=== PATIENT | male | born 1970 | race Caucasian/White ===

== ENCOUNTER 2016-11-29 18:16 | Emergency (ER) | payer BC, OTHER ==
[~2016-11-29] VITALS: Wt 83.0 kg
[~2016-11-29 18:16] MED LIST: ACET500T98 PO; ATOR20TA17 PO; IBUP-725 PO; METO25TA54 PO
[2016-11-29] MEDS ORDERED: SOD CHLORIDE 0.9% 1,000 ML IV STA (18:47)
--- NOTE | 2016-11-29 18:48 | ERD ---
ER Documentation Chief Complaint Date/Time DATE: 11/29/16 TIME: 18:41 Chief Complaint BACK PAIN, FEVER AT HOME, BODYACHES, BURNING WITH URINATION HPI 46-year-old male presents here in emergency department for complaints of bilateral flank pain and dysuria, urinary urgency, and frequency for 3 days, fever. Patient has been having bilateral flank pain, sharp pain, 6/10 scale, accompanied with fever and dysuria. Patient is complaining of pain upon urination, burning pain,6/10 scale, not better or worse with anything. ROS All systems reviewed and are negative except as per history of present illness. Medications Home Meds Reported Medications Ibuprofen (Motrin) 400 Mg Tablet, 400 MG PO PRN 12/03/10 Acetaminophen (Tylenol) 500 Mg Tab, 500 MG PO PRN 12/03/10 Metoprolol Succinate (Toprol Xl) 25 Mg Tab.sr.24h, 75 MG PO AM 12/03/10 Atorvastatin (Lipitor) 20 Mg Tablet, 20 MG PO HS 12/03/10 Allergies Allergies: Coded Allergies: No Known Drug Allergies (Verified Allergy, Mild, 12/03/10) PMhx/Soc History of Surgery: No Anesthesia Reaction: No Hx Neurological Disorder: No Hx Respiratory Disorders: No Hx Cardiac Disorders: No Hx Psychiatric Problems: No Hx Miscellaneous Medical Probl: Yes (HIGH CHOLESTEROL,HTN) Hx Alcohol Use: No Hx Substance Use: No Hx Tobacco Use: Yes FmHx Family History: No coronary disease, No diabetes, No other Physical Exam Vitals Vital Signs Date Time Temp Pulse Resp B/P Pulse Ox O2 Delivery O2 Flow Rate FiO2 11/29/16 18:19 99.0 103 17 127/82 98 Physical Exam GENERAL: The patient is well developed and appropriate for usual state of health, in no apparent distress. CHEST: Clear to auscultation bilaterally. There are no rales, wheezes or rhonchi. HEART: Regular rate and rhythm. No murmurs, clicks, rubs or gallops. No S3 or S4. ABDOMEN: Soft, nontender and nondistended. Good bowel sounds. No rebound or guarding. No gross peritonitis. No gross organomegaly or masses. No Stanley sign or McBurney point tenderness. BACK: No midline or flank tenderness. EXTREMITIES: Equal pulses bilaterally. There is no peripheral clubbing, cyanosis or edema. No focal swelling or erythema. Full range of motion. Grossly neurovascularly intact. NEURO: Alert and oriented. Cranial nerves 2-12 intact. Motor strength in all 4 extremities with 5/5 strength. Sensation grossly intact. Normal speech and gait. SKIN: There is no apparent rash or petechia. The skin is warm and dry. HEMATOLOGIC AND LYMPHATIC: There is no evidence of excessive bruising or lymphedema. No gross cervical, axillary, or inguinal lymphadenopathy. Result Diagram: 11/29/16189911/29/161899 Results 24 hrs Laboratory Tests Test 11/29/16 19:00 White Blood Count 9.010^3/ul Red Blood Count 4.4510^6/ul Hemoglobin 14.4g/dl Hematocrit 41.5% Mean Corpuscular Volume 93.3fl Mean Corpuscular Hemoglobin 32.4pg Mean Corpuscular Hemoglobin Concent 34.7g/dl Red Cell Distribution Width 13.2% Platelet Count 7810^3/UL Mean Platelet Volume 10.9fl Neutrophils % 86.2% Lymphocytes % 9.6% Monocytes % 3.7% Eosinophils % 0.0% Basophils % 0.2% Nucleated Red Blood Cells % 0.0/100WBC Neutrophils # 7.810^3/ul Lymphocytes # 0.910^3/ul Monocytes # 0.310^3/ul Eosinophils # 0.010^3/ul Basophils # 0.010^3/ul Nucleated Red Blood Cells # 0.010^3/ul Urine Color DAVE Urine Clarity CLEAR Urine pH 6.0 Urine Specific Weston 1.004 Urine Ketones TRACEmg/dL Urine Nitrite POSITIVEmg/dL Urine Bilirubin NEGATIVEmg/dL Urine Urobilinogen 1+mg/dL Urine Leukocyte Esterase 2+Agata/ul Urine Microscopic RBC 6/HPF Urine Microscopic WBC 41/HPF Urine Hemoglobin 2+mg/dL Urine Glucose 1+mg/dL Urine Total Protein NEGATIVEmg/dl Sodium Level 139mmol/L Potassium Level 3.8mmol/L Chloride Level 99mmol/L Carbon Dioxide Level 27mmol/L Anion Gap 17 Blood Urea Nitrogen 6mg/dl Creatinine 0.87mg/dl Glucose Level 207mg/dl Calcium Level 9.0mg/dl Total Bilirubin 0.6mg/dl Direct Bilirubin 0.00mg/dl Indirect Bilirubin 0.6mg/dl Aspartate Amino Transf (AST/SGOT) 20IU/L Alanine Aminotransferase (ALT/SGPT) 43IU/L Alkaline Phosphatase 47IU/L Total Protein 6.8g/dl Albumin 4.0g/dl Globulin 2.80g/dl Albumin/Globulin Ratio 1.42 Lipase 23U/L Current Medications Medications (Trade) Dose Ordered Sig/Noe Route PRN Reason Start Time Stop Time Status Last Admin Dose Admin Sodium Chloride 1,000 ml @ 1,000 mls/hr Q1H STAT IV 11/29/16 18:47 11/29/16 19:46 DC 11/29/16 19:00 Ceftriaxone Sodium (Rocephin) 50 ml @ 100 mls/hr ONCE ONCE IVPB 11/29/16 20:30 11/29/16 20:59 UNV IV Rocephin was given here in emergency department for pyelonephritis. PROCEDURE: CT abdomen and pelvis without contrast. CLINICAL INDICATION: Abdominal Pain TECHNIQUE: CT scan of the abdomen and pelvis without contrast was performed on a multi-slice CT scanner. The patient was scanned without intravenous contrast. 3-D sagittal and coronal reformatted images were obtained from the axial source images. CTDI: 11.5 and DLP: 666.08 One or more of the following post reduction techniques were used: Automated exposure control. Adjustment of the mA and/or kV according to patient's size. Use of iterative reconstruction technique. COMPARISON: None. FINDINGS: Images through the lung bases demonstrate mild discoid atelectasis in the right middle lobe and left lower lobe. There is no evidence of focal basilar consolidation or pleural effusion. The liver, gallbladder, pancreas and adrenal glands are unremarkable on this noncontrast study. The spleen is enlarged measuring 17 cm in craniocaudal dimension. The kidneys are bilaterally symmetrical without evidence of hydronephrosis. There is no evidence of obstructive uropathy. There is small shoddy left periaortic lymph nodes that are less than 1 cm in short axis diameter. Atherosclerotic changes are seen in the abdominal aorta without evidence of aneurysm. The stomach is grossly unremarkable. There is no evidence of small bowel obstruction or appendicitis. Stool is seen throughout the colon. There is no evidence of diverticulitis. The bladder is moderately distended. No free fluid or free intraperitoneal air is identified. Evaluation of the osseous structures reveals no acute change. IMPRESSION: 1. The spleen is markedly enlarged measuring 17 cm in craniocaudal dimension. 2. Stool is seen throughout the colon. 3. The bladder is moderately distended. 4. Mild discoid atelectasis in the right middle lobe and left lower lobe. RPTAT:AAJJ Huber Aguilar Physician Date Time Electronically viewed and signed by Huber Aguilar Physician on 11/29/2016 20: 05 MC/ CC: JESSICA SARGENT [employer]ING [employer]ER Procedures/MDM Medical Decision Making: Patient's symptoms is likely consistent with pyelonephritis. Patient does not have any obstructive stone. No symptoms of any septic stone. Patient also has constipation may be causing some urinary retention There is low suspicion for abdominal emergencies at this time. Patients abdominal exam is normal at this time. Patients radiology exam does not show any abdominal emergencies at this time. There is low suspicion for appendicitis, cholecystitis, abdominal aortic aneurysms or peritonitis at this time. There is low suspicion for sepsis. Patient appears well and is hemodynamically stable. Disposition: Home. Condition: Stable Prescription for ciprofloxin, Pyridium, Colace, MiraLAX Instructions: Patient is advised to take medications as prescribed. Patient is advised to rest, increase fluid intake and do brat diet for next 1-2 days and progress as tolerated. Patient is advised that if symptoms are worse, severe abdominal pain, uncontrolled vomiting, high fever, severe flank pain, worst signs and symptoms, to return to the emergency department immediately. Otherwise, patient can follow up with primary care doctor in 5-7 days. Departure Diagnosis: Primary Impression: Pyelonephritis Additional Impression: Constipation Constipation type: unspecified constipation type Qualified Code: K59.00 - Constipation, unspecified constipation type Condition: Stable Patient Instructions: Constipation (Adult), Pyelonephritis, Male (Adult) Additional Instructions: Patient is advised to take medications as prescribed. Patient is advised to rest, increase fluid intake and do brat diet for next 1-2 days and progress as tolerated. Patient is advised that if symptoms are worse, severe abdominal pain , uncontrolled vomiting, high fever, severe flank pain, worst signs and symptoms , to return to the emergency department immediately. Otherwise, patient can follow up with primary care doctor in 5-7 days. JESSICA SARGENT NP Nov 29, 2016 18:48
[2016-11-29 19:07] LABS: ABNORMAL IP MESSAGE 1; BASOPHILS % 0.2 % (0.0-2.0); HEMATOCRIT 41.5 % (42.0-52.0); HEMOGLOBIN 14.4 g/dl (14.0-18.0); LYMPHOCYTES # 0.9 10^3/ul (0.8-2.9); LYMPHOCYTES % 9.6 % (15.0-51.0); MEAN CORPUSCULAR HEMOGLOBIN 32.4 pg (29.0-33.0); MEAN CORPUSCULAR HGB CONC 34.7 g/dl (32.0-37.0); MEAN CORPUSCULAR VOLUME 93.3 fl (82.0-101.0); MEAN PLATELET VOLUME 10.9 fl (7.4-10.4); MONOCYTE # 0.3 10^3/ul (0.3-0.9); MONOCYTES % 3.7 % (0.0-11.0); NEUTROPHIL # 7.8 10^3/ul (1.6-7.5); NEUTROPHILS % 86.2 % (39.0-77.0); PLATELET COUNT 78 10^3/UL (140-415); POSITIVE DIFF @See below; RED BLOOD COUNT 4.45 10^6/ul (4.70-6.10); RED CELL DISTRIBUTION WIDTH 13.2 % (11.5-14.5)
[2016-11-29 19:24] LABS: ADD UMIC YES; UR ASCORBIC ACID NEGATIVE (NEGATIVE); UR BILIRUBIN (Dip) NEGATIVE (NEGATIVE); UR BLOOD (Dip) 2+ mg/dL (NEGATIVE); UR CLARITY CLEAR (CLEAR); UR COLOR AMBER (YELLOW); UR GLUCOSE (Dip) 1+ mg/dL (NEGATIVE); UR KETONES (Dip) TRACE mg/dL (NEGATIVE); UR LEUKOCYTE ESTERASE (Dip) 2+ Leu/ul (NEGATIVE); UR NITRITE (Dip) POSITIVE (NEGATIVE); UR RBC 6 /HPF (0-5); UR SPECIFIC GRAVITY (Dip) 1.004 (1.003-1.030); UR TOTAL PROTEIN (Dip) NEGATIVE (NEGATIVE); UR UROBILINOGEN (Dip) 1+ mg/dL (NEGATIVE)
[2016-11-29 19:26] LABS: ALBUMIN/GLOBULIN RATIO 1.42; BILIRUBIN,INDIRECT 0.6 mg/dl (0-1.1); BILIRUBIN,TOTAL 0.6 mg/dl (0.2-1.3); CREATININE 0.87 mg/dl (0.61-1.24); POTASSIUM 3.8 mmol/L (3.5-5.1); TOTAL PROTEIN 6.8 g/dl (6.1-8.1)
--- NOTE | 2016-11-29 20:06 | RADRPT ---
PROCEDURE: CT abdomen and pelvis without contrast. CLINICAL INDICATION: Abdominal Pain TECHNIQUE: CT scan of the abdomen and pelvis without contrast was performed on a multi-slice CT [facility]. The patient was scanned without intravenous contrast. 3-D sagittal and coronal reformatted images were obtained from the axial source images. CTDI: 11.5 and DLP: 666.08 One or more of the following post reduction techniques were used: Automated exposure control. Adjustment of the mA and/or kV according to patient's size. Use of iterative reconstruction technique. COMPARISON: None. FINDINGS: Images through the lung bases demonstrate mild discoid atelectasis in the right middle lobe and left lower lobe. There is no evidence of focal basilar consolidation or pleural effusion. The liver, gallbladder, pancreas and adrenal glands are unremarkable on this noncontrast study. The spleen is enlarged measuring 17 cm in craniocaudal dimension. The kidneys are bilaterally symmetrical without evidence of hydronephrosis. There is no evidence of obstructive uropathy. There is small shoddy left periaortic lymph nodes that are less than 1 cm in short axis diameter. At herosclerotic changes are seen in the abdominal aorta without evidence of aneurysm. The stomach is grossly unremarkable. There is no evidence of small bowel obstruction or appendiciti s. Stool is seen throughout the colon. There is no evidence of diverticulitis. The bladder is mod erately distended. No free fluid or free intraperitoneal air is identified. Evaluation of the osseous structures reve als no acute change. IMPRESSION: 1. The spleen is markedly enlarged measuring 17 cm in craniocaudal dimension. 2. Stool is seen throughout the colon. 3. The bladder is moderately distended. 4. Mild discoid atelectasis in the right middle lobe and left lower lobe. RPTAT:AAJJ Physician Kathy Date Time Electronically viewed and signed by Physician Kathy on 11/29/2016 20:05 ARNIE/
[2016-11-29] MEDS ORDERED: PHEN-538 PO (20:19)
[2016-11-29] MEDS ORDERED: CIPR500T4 PO (20:19)
[2016-11-29] MEDS ORDERED: DOCU-144 PO (20:19)
[2016-11-29] MEDS ORDERED: POLY17PO6 PO (20:19)
[2016-11-29] MEDS ORDERED: CEFTRIAXONE 1 GM/50 ML (PMX) 50 ML IVPB ONE (20:30)
== END 2016-11-29 20:52 | disposition home or self-care (01) ==
LOC: FTE 18:16
DX: N12 Tubulo-interstitial nephritis, not specified as acute or chronic (principal); K59.00 Constipation, unspecified; Z87.891 Personal history of nicotine dependence
CPT/HCPCS: 36415; 74176; 80053; 81001; 83690; 85025; 96374; 99285; J0696; J7030